=== PATIENT | female | born 1970 | race Caucasian/White ===

== ENCOUNTER 2022-10-29 07:45 | Outpatient (OUT) | payer BC, SELFPAY ==
[2022-10-29 08:51] LABS: White Blood Count 5.8 10^3/uL (4.0-11.0)
[2022-10-29 08:52] LABS: Basophils Percent Auto 0.7 % (0.2-2.0); Eosinophils Absolute Auto 0.3 10^3/uL (0.0-0.7); Eosinophils Percent Auto 4.7 % (0.9-7.0); Hematocrit 41.9 % (36.0-48.0); Hemoglobin 13.9 g/dL (12.0-16.0); Immature Granulocytes Abs Auto 0.01 10^3/uL (0.00-0.03); Immature Granulocytes Pct Auto 0.2 % (0.0-0.5); Lymphocytes Absolute Auto 1.7 10^3/uL (1.2-3.8); Lymphocytes Percent Auto 28.8 % (20.5-60.0); Mean Corpuscular HGB Conc 33.2 g/dL (29.9-35.2); Mean Corpuscular Hemoglobin 29.7 pg (26.7-34.0); Mean Corpuscular Volume 89.5 fL (81.0-99.0); Mean Platelet Volume 9.3 fL (9.5-13.5); Monocytes Absolute Auto 0.5 10^3/uL (0.3-0.8); Monocytes Percent Auto 8.8 % (1.7-12.0); Neutrophils Absolute Auto 3.3 10^3/uL (1.4-6.5); Neutrophils Percent Auto 56.8 % (43.0-75.0); Platelet Count 277 10^3/uL (150-450); Red Blood Count 4.68 10^6/uL (4.20-5.40); Red Cell Distribution Width 13.2 % (11.0-15.0)
[2022-10-29 09:01] LABS: Estimated Average Glucose 100 mg/dL; Glycohemoglobin A1C 5.1 % (4.5-6.2)
[2022-10-29 09:13] LABS: Alanine Aminotransferase 17 U/L (14-59); Albumin Globulin Ratio 0.9; Albumin Level 3.8 g/dL (3.4-5.0); Alkaline Phosphatase 127 U/L (46-116); Anion Gap 10.1; Aspartate Amino Transferase 13 U/L (15-37); BUN Creatinine Ratio 17.3; Bilirubin Total 0.6 mg/dL (0.2-1.0); Calcium 9.4 mg/dL (8.5-10.1); Carbon Dioxide 30.8 mmol/L (21.0-32.0); Chloride 101 mmol/L (98-107); Chol HDL Ratio 4.7; Cholesterol 257 mg/dL (<=200); Estimated GFR (African America >60 (>=60); Estimated GFR (Non-African Ame >60 (>=60); Globulin 4.1 g/dL; Glucose 90 mg/dL (74-106); HDL Cholesterol 55 mg/dL (40-60); Potassium 3.9 mmol/L (3.5-5.1); Sodium 138 mmol/L (136-145); Thyroid Stimulating Hormone 3.281 uIU/mL (0.358-3.740); Total Protein 7.9 g/dL (6.4-8.2); Triglycerides 90 mg/dL (<=150)
== END 2022-10-29 07:46 | disposition home or self-care (01) ==
LOC: LAB 07:45
PROVIDERS: PCP Internal Medicine; Visit Provider Internal Medicine
DX: Z00.00 Encounter for general adult medical examination without abnormal findings (principal)
CPT/HCPCS: 36415; 80053; 80061; 83036; 84443; 85025

== ENCOUNTER 2023-09-22 12:40 | Outpatient (OUT) | payer BC, SELFPAY ==
[2023-09-22 12:57] LABS: Bilirubin Urine NEGATIVE (NEGATIVE); Blood Urine MODERATE (NEGATIVE); Clarity Urine SL CLOUDY (CLEAR); Color Urine LT. YELLOW (YELLOW); Glucose Urine UA NEGATIVE (NEGATIVE); Ketones Urine NEGATIVE (NEGATIVE); Leukocyte Esterase Urine LARGE (NEGATIVE); Nitrite Urine NEGATIVE (NEGATIVE); Protein Urine NEGATIVE (NEG/TRACE); Specific Gravity Urine <=1.005 (1.005-1.025); Urobilinogen Urine 0.2 EU/dL (0.2-1.0)
[2023-09-22 13:05] LABS: Bacteria Urine MODERATE #/HPF (NONE SEEN); Cast Seen? NONE SEEN #/LPF (NONE SEEN); Crystals Seen? None Seen #/HPF (None Seen); Mucus Urine NONE SEEN (NONE SEEN); Squamous Epithelial Cell Urine RARE #/LPF (NONE/RARE); WBC Urine 50-75 #/HPF (NONE SEEN)
== END 2023-09-22 12:41 | disposition home or self-care (01) ==
LOC: LAB 12:41
PROVIDERS: PCP Internal Medicine; Visit Provider Internal Medicine
DX: R30.0 Dysuria (principal)
CPT/HCPCS: 81001; 87086; 87150; 87186

== ENCOUNTER 2023-11-11 12:56 | Outpatient (OUT) | payer BC, SELFPAY ==
--- NOTE | 2023-11-11 | MM_ITS ---
Patient Name: ALFONSO CARDONA MR#: [id number] : 1970 Exam Date: 11/11/2023 Ordering Doctor: DR Calin Kirkland D.O. RADIOLOGY REPORT PROCEDURE: MM TOMOSYNTHESIS SCREENING BI COMPARISON: MG MAMM SCREEN 3D KOURTNEY CAD, 01/14/2021. MG MAMM SCREEN 3D KOURTNEY CAD, 05/20/2022. INDICATIONS: Screening for malignant neoplasm of breast Calculator Name NCI Breast Cancer Risk Assessment Tool 5 Year Breast Cancer Risk 2.40% Lifetime Breast Cancer Risk 15.90% Personal Breast Cancer No Personal Ovarian Cancer No Treatments None Family Cancers Mother with breast cancer at age 81. LOCATION: The [facility] BREAST COMPOSITION: The breasts are heterogeneously dense,which may obscure small masses. FINDINGS: DIAGNOSTIC CATEGORY 1--NEGATIVE. NO CHANGE FROM COMPARISON ASSESSMENT. Scattered benign-appearing lymph nodes are present. RIGHT BREAST: No significant suspicious finding. LEFT BREAST: No significant suspicious finding. RECOMMENDATIONS: ROUTINE MAMMOGRAM AND CLINICAL EVALUATION IN 12 MONTHS. PLEASE NOTE: A NORMAL MAMMOGRAM DOES NOT EXCLUDE THE POSSIBILITY OF BREAST CANCER. A CLINICALLY SUSPICIOUS PALPABLE LUMP SHOULD BE BIOPSIED. Dictated by: Rusty Amaya MD on 11/11/2023 at 14:45 Approved by: Rusty Amaya MD on 11/11/2023 at 14:47
--- OUTSIDE RECORDS SUMMARY | 2023-11-11 13:05 | XMS_ITS | CCD ---
Author Organization [facility] Care Team Providers Care Electrical Technician Instructor Name Role Phone FOREIGN, DR MCINTYRE Admitting Unavailable BALL, DR MCINTYRE Attending Unavailable BALL, DR MCINTYRE Primary Care Unavailable BALL, DR MCINTYRE Consulting Unavailable AMELIA, DR GIRISH Frias Consulting Unavailable HIGHLANDER, LADONNA Clements Admitting Unavailable HIGHLANDER, LADONNA Clements Attending Unavailable BALL, DR MCINTYRE Primary Care Unavailable HIGHLCARINE, LADONNA Clements Admitting Unavailable HIGHLANDER, LADONNA Clements Attending Unavailable BALL, DR MCINTYRE Primary Care Unavailable BALL, DR MCINTYRE Admitting Unavailable BALL, DR MCINTYRE Attending Unavailable BALL, DR MCINTYRE Primary Care Unavailable BALL, DR MCINTYRE Admitting Unavailable BALL, DR MCINTYRE Attending Unavailable BALL, DR MCINTYRE Primary Care Unavailable BALL, DR MCINTYRE Consulting Unavailable AMELIA, DR GIRISH Frias Consulting Unavailable PALLAVI, ANGEL Admitting Unavailable PALLAVI, ANGEL Attending Unavailable BALL, DR MCINTYRE Primary Care Unavailable AMELIA, DR GIRISH Frias Consulting Unavailable PALLAVI, ANGEL Consulting Unavailable BALL, DR MCINTYRE Primary Care Unavailable HIGHLANDER, LADONNA Clements Admitting Unavailable HIGHLANDER, LADONNA Clemetns Attending Unavailable WEST, DR TOD Gleason Consulting Unavailable HIGHLCARINE, LADONNA Clements Consulting Unavailable Ball, Calin Unavailable Allergies Allergy Classification Reported Allergen(s) Allergy Type Date of Onset Reaction(s) Facility (3 sources) Penicillin Drug Allergy 01-23-2017 Unknown [facility] Repository Medications Current Medications Medication Drug Class(es) Dates Sig (Normalized) Sig (Original) amLODIPine 5 mg oral tablet (1 source) Dihydropyridine Calcium Channel Eyad take 1 tablet by mouth at bedtime amLODIPine Besylate 5 MG TAKE 1 (ONE) TABLET BY MOUTH AT BEDTIME Active Cholecalciferol (1 source) Vitamin D take 1 tablet by mouth once daily Cholecalciferol 75 MCG (3000 UT) 1 tablet Orally Once a day Active losartan potassium 25 mg oral tablet (1 source) Angiotensin 2 Receptor Eyad take 1 tablet by mouth every twenty-four hours Losartan Potassium 25 MG 1 tablet Orally Once a day for 90 days Active Problems Active Problems Problem Classification Problem Date Documented Da te Episodic/Chronic Essential hypertension (3 sources) Hypertensive disorder; Translations: [Essential (primary) hypertension] Chronic Other nervous system disorders (1 source) Arachnoid cyst; Translations: [Cerebral cysts] Chronic Other screening for suspected conditions (not mental disorders or infectious disease) (6 sources) Encounter for screening mammogram for malignant neoplasm of breast; Translations: [Encounter for screening for malignant neoplasm of colon] Onset: 05-20-2022 Episodic Residual codes; unclassified (1 source) Family history of malignant neoplasm of breast; Translations: [FAMILY HX MALIG NEOPLASM OF BREAST] Onset: 05-23-2022 Episodic Past or Other Problems Problem Classification Problem Date Documented Da te Episodic/Chronic Fracture of lower limb (4 sources) Other physeal fracture of right metatarsal, subsequent encounter for fracture with routine healing; Translations: [OTH PHYSEAL FX RT MT SUB FX RTN HL] Onset: 07-29-2021 Episodic Other connective tissue disease (4 sources) Pain in right foot; Translations: [PAIN IN RIGHT FOOT] Onset: 07-14-2021 Episodic Other non-traumatic joint disorders (4 sources) Pain in right ankle and joints of right foot; Translations: [PAIN IN RIGHT ANKLE] Onset: 07-01-2021 Episodic Results Test Name Value Interpretation Reference Range Facil ity MG MAMM SCREEN 3D KOURTNEY CADon 05-20-2022 MG MAMM SCREEN 3D KOURTNEY CAD Patient: ALFONSO CARDONA Exam Date: 05/20/2022 : 1970 Gender:F Ordering : DR CALIN CARRASQUILLO D.O. Admission #: [id number] Family : Order #: [id number] CLICK HERE TO VIEW EXAM RADIOLOGY REPORT PROCEDURE: MAMMOGRAM SCREENING 3D BILATERAL CAD COMPARISON: MG MAMM SCREEN KOURTNEY W CAD, 01/31/2019. MG MAMM SCREEN KOURTNEY W CAD, 02/13/2018. DIGITIZED_MAMMO, 01/17/2009. MG MAMM SCREEN 3D KOURTNEY CAD, 01/14/2021. INDICATIONS: Screening mammography Calculator Name NCI Breast Cancer Risk Assessment Tool 5 Year Breast Cancer Risk 2.20% Lifetime Breast Cancer Risk 16.50% Personal Breast Cancer No Personal Ovarian Cancer No Treatments None Family Cancers Mother with breast cancer at age 81. LOCATION: [facility] BREAST COMPOSITION: Heterogeneously dense,which may obscure small masses. FINDINGS: DIAGNOSTIC CATEGORY 2--BENIGN FINDING: RIGHT BREAST: No significant suspicious finding. Stable, chronic small lymph node within lower-inner quadrant. No significant change has occurred. LEFT BREAST: No significant suspicious finding. No significant change has occurred. RECOMMENDATIONS: ROUTINE MAMMOGRAM AND CLINICAL EVALUATION IN 12 MONTHS. PLEASE NOTE: A NORMAL MAMMOGRAM DOES NOT EXCLUDE THE POSSIBILITY OF BREAST CANCER. A CLINICALLY SUSPICIOUS PALPABLE LUMP SHOULD BE BIOPSIED. Dictated by: Girish Mcqueen M.D. on 05/21/2022 at 07:11 Approved by: Girish Mcqueen M.D. on 05/21/2022 at 07:17 Normal [facility] Vital Signs Date Time Vital Sign Value Performing Clinician Facility 11-05-2022 14:00-0400 Body height 170.18 cm Calin Carrasquillo Other [facility] Other 11-05-2022 14:00-0400 Body mass index (BMI) [Ratio] 35.27 kg/m2 Calin Carrasquillo Other [facility] Other 11-05-2022 14:00-0400 Body weight 102.15 kg Calin Carrasquillo Other [facility] Other 11-05-2022 14:00-0400 Diastolic blood pressure 83 mm[Hg] Calin [facility] Other [facility] Other 11-05-2022 14:00-0400 Respiratory rate 12 /min Calin Carrasquillo Other [facility] Other 11-05-2022 14:00-0400 Systolic blood pressure 121 mm[Hg] Calin [employer] Other [facility] Other Encounters Encounter Date Encounter Type Care Provider Facility Start: 11-05-2022 End: 11-05-2022 ambulatory Calin Carrasquillo Other [facility] Other Start: 11-05-2022 Encounter for genera l adult medical examination without abnormal findings Calin Carrasquillo [facility] Start: 11-05-2022 Periodic preventive med est patient 40-64yrs Calin Carrasquillo [facility] Start: 05-20-2022 End: 05-21-[address] CALIN CARRASQUILLO Facility:[facility] Start: 01-05-[address] CALIN CARRASQUILLO Facili ty:[facility] Start: 07-29-2021 End: 07-30-[address] CALIN CARRASQUILLO Facility:[facility] Start: 07-14-2021 End: 07-15-2021 ambulatory ANGEL OLIVO Facility:[facility] Start: 07-06-2021 ambulatory LADONNA GALO Faci lity:[facility]1 Start: 07-03-2021 ambulatory LADONNA GALO Faci lity:[facility] Start: 07-01-2021 End: 07-02-[address] CALIN CARRASQUILLO Facility:[facility] Payers Date Payer Category Payer Unknown [id number] 2019 Unknown [id number] 1970 Unknown [id number] 2.16.84 [id number] 1970 Unknown [id number] 2.16.84 [id number] 1970 Unknown [id number] 2.16.84 [id number] 1970 Unknown [id number] 2.16.84 [id number] 1970 Unknown [id number] 2.16.84 [id number] 1970 Unknown [id number] 2.16.84 [id number] 1970 Unknown [id number] 2.16.84 [id number] 1961 Self-pay [id number] Social History Date Type Detail Facility Sex Assigned At [facility] Other Evaluation note 11-05-2022 Note Date & Type Note Facility 11-05-2022 Evaluation note Encounter Date Diagnosis Assessment Notes Oct, Wellness examination (ICD-10 - Z00.00) Healthy diet and exercise. Reviewed age-appropriate preventive testing recommended. Oct, Primary hypertension (ICD-10 - I10) This patient is instructed to consume a healthy, low-fat, low-salt diet. They are also encouraged to continue exercise to achieve/maintai n a normal BMI. Oct, Screening mammogram for breast cancer (ICD-10 - Z12.31) Completed Instructed patient on monthly SBE and yearly mammograms. Oct, Screening for colon cancer (ICD-10 - Z12.11) Asymptomatic, low risk patient. Denies change in weight, appetite or bowel habits. Denies heartburn, dysphagia, melena or hematochezia [facility] Other Clinical Note 07-29-2021 Note Date & Type Note Facility 07-29-2021 Note PROCEDURE: XR FOOT R T MIN 3 VIEWS COMPARISON: 07/14/2021 HISTORY: Pain in right foot FINDINGS: BONES:Stable transverse intra-articular fracture base of the fifth metatarsal. No change in angulation or distraction. Slight interval bone formation. Cortical thinning and mild permeative pattern suggests mild osteopenia. Flattening of the plantar arch with plantar angulation of the navicular in relation to the distal tarsals, stable SOFT TISSUES:Negative. No visible soft tissue swelling. EFFUSION:None visible. OTHER: Negative. IMPRESSION: Stable healing intra-articular transverse fracture base of the fifth metatarsal Electronically authenticated by: TOD UP Date: 2021-07-29 15:07 [facility] Clinical Note 07-14-2021 Note Date & Type Note Facility 07-14-2021 Note PROCEDURE: XR FOOT R T MIN 3 VIEWS HISTORY: Pain , fifth metatarsal fracture COMPARISON: XR foot right 07/01/2021 FINDINGS: BONES:Callus with fracture base of fifth metatarsal with widening of the fracture line likely due to bone resorption as part of early healing process. Questionable increasing band of lucency within lateral malleolus seen only on the lateral projection. SOFT TISSUES:No visible soft tissue swelling. EFFUSION:None visible. OTHER: Negative. IMPRESSION: 1. Stable alignment and suspected early changes of bone healing at base of fifth metatarsal fracture. 2. Questionable developing lucency within the lateral malleolus which may represent an occult fracture. Correlate for pain over lateral malleolus, and perform follow-up ankle radiographs if indicated. Electronically authenticated by: GIRISH MCQUEEN Date: 2021-07-14 10:59 [facility] Clinical Note 07-01-2021 Note Date & Type Note Facility 07-01-2021 Note PROCEDURE: XR FOOT R T MIN 3 VIEWS, XR ANKLE RT MIN 3 VIEWS HISTORY: Pain in right foot ; lateral foot and ankle pain and swelling COMPARISON: None. FINDINGS: BONES:Fracture line extending through the base of the fifth metatarsal without displacement or appreciable callus formation. Unremarkable ankle joint. SOFT TISSUES:Lateral soft tissue swelling. EFFUSION:None visible. OTHER: Negative. IMPRESSION: 1. Nondisplaced fracture at base of fifth metatarsal suspected to be acute. Electronically authenticated by: GIRISH MCQUEEN Date: 2021-07-01 15:03 [facility] Clinical Note 07-01-2021 Note Date & Type Note Facility 07-01-2021 Note PROCEDURE: XR FOOT R T MIN 3 VIEWS, XR ANKLE RT MIN 3 VIEWS HISTORY: Pain in right foot ; lateral foot and ankle pain and swelling COMPARISON: None. FINDINGS: BONES:Fracture line extending through the base of the fifth metatarsal without displacement or appreciable callus formation. Unremarkable ankle joint. SOFT TISSUES:Lateral soft tissue swelling. EFFUSION:None visible. OTHER: Negative. IMPRESSION: 1. Nondisplaced fracture at base of fifth metatarsal suspected to be acute. Electronically authenticated by: GIRISH MCQUEEN Date: 2021-07-01 15:03 [facility] History general Narrative - Reported Note Date & Type Note Facility History general Narrative - Reported Type Medical History Hypertension Medical History Arachnoid cyst Surgical History 2009 Hospitalization History see surgical history [facility] Other Summary Purpose Family History No Family History Records Found Advance Directives No Advanced Directives Records Found Additional Source Comments INFORMATION SOURCE (unrecogn ized section and content) DATE CREATED AUTHOR 05/23/2022 [facility] REASON FOR VISIT (unrecogniz ed section and content) wellness FOR RECORDS PERTAINING TO PATIENTS WHO ARE OR HAVE BEEN ENROLLED IN A CHEMICAL DEPENDENCY/SUBSTANCEABUSE PROGRAM, SOME INFORMATION MAY BE OMITTED. This clinical summary was aggregated from multiple sources. Caution should be exercised in using it in the provision of clinical care. This summary normalizes information from multiple sources, and as a consequence, information in this document may materially change the coding, format and clinical context of patient data. In addition, data may be omitted in some cases. CLINICAL DECISIONS SHOULD BE BASED ON THE PRIMARY CLINICAL RECORDS. [employer]. provides no warranty or guarantee of the accuracy or completeness of information in this document.
== END 2023-11-11 12:57 | disposition home or self-care (01) ==
LOC: RAD 12:56
PROVIDERS: PCP Internal Medicine; Visit Provider Internal Medicine
DX: Z12.31 Encounter for screening mammogram for malignant neoplasm of breast (principal); Z80.3 Family history of malignant neoplasm of breast
CPT/HCPCS: 77063; 77067

== ENCOUNTER 2024-07-04 10:38 | Outpatient (OUT) | payer BC, SELFPAY ==
[2024-07-04 10:47] LABS: Basophils Percent Auto 0.6 % (0.2-2.0); Eosinophils Absolute Auto 0.3 10^3/uL (0.0-0.7); Eosinophils Percent Auto 4.2 % (0.9-7.0); Hematocrit 38.9 % (36.0-48.0); Hemoglobin 13.3 g/dL (12.0-16.0); Immature Granulocytes Abs Auto 0.01 10^3/uL (0.00-0.03); Immature Granulocytes Pct Auto 0.2 % (0.0-0.5); Lymphocytes Absolute Auto 1.6 10^3/uL (1.2-3.8); Lymphocytes Percent Auto 24.8 % (20.5-60.0); Mean Corpuscular HGB Conc 34.2 g/dL (29.9-35.2); Mean Corpuscular Hemoglobin 30.6 pg (26.7-34.0); Mean Corpuscular Volume 89.6 fL (81.0-99.0); Mean Platelet Volume 9.3 fL (9.5-13.5); Monocytes Absolute Auto 0.4 10^3/uL (0.3-0.8); Monocytes Percent Auto 6.9 % (1.7-12.0); Neutrophils Percent Auto 63.3 % (43.0-75.0); Platelet Count 234 10^3/uL (150-450); Red Blood Count 4.34 10^6/uL (4.20-5.40); Red Cell Distribution Width 13.2 % (11.0-15.0); White Blood Count 6.2 10^3/uL (4.0-11.0)
[2024-07-04 11:28] LABS: Estimated Average Glucose 114 mg/dL; Glycohemoglobin A1C 5.6 % (4.5-6.2)
[2024-07-04 11:41] LABS: Alanine Aminotransferase 18 U/L (14-59); Albumin Level 3.7 g/dL (3.4-5.0); Alkaline Phosphatase 109 U/L (46-116); Anion Gap 11.8; Aspartate Amino Transferase 14 U/L (15-37); BUN Creatinine Ratio 13.1; Bilirubin Total 0.6 mg/dL (0.2-1.0); Calcium 9.3 mg/dL (8.5-10.1); Chloride 100 mmol/L (98-107); Chol HDL Ratio 4.1; Cholesterol 219 mg/dL (<=200); Estimated GFR (African America >60 (>=60 mL/min/1.73m^2); Estimated GFR (Non-African Ame >60 (>=60 mL/min/1.73m^2); Globulin 3.8 g/dL; Glucose 91 mg/dL (74-106); HDL Cholesterol 54 mg/dL (40-60); Potassium 3.8 mmol/L (3.5-5.1); Sodium 137 mmol/L (136-145); Thyroid Stimulating Hormone 2.217 uIU/mL (0.358-3.740); Total Protein 7.5 g/dL (6.4-8.2); Triglycerides 64 mg/dL (<=150); VLDL CHOLESTEROL 12.8 mg/dL
== END 2024-07-04 10:39 | disposition home or self-care (01) ==
LOC: LAB 10:38
PROVIDERS: PCP Internal Medicine; Visit Provider Internal Medicine
DX: Z00.00 Encounter for general adult medical examination without abnormal findings (principal)
CPT/HCPCS: 36415; 80053; 80061; 83036; 84443; 85025

== ENCOUNTER 2024-11-13 10:33 | Outpatient (OUT) | payer BC, SELFPAY ==
--- OUTSIDE RECORDS SUMMARY | 2024-11-13 06:01 | XMS_ITS | CCD ---
Author Organization [facility] Care Team Providers Care Assistant Coach Name Role Phone FOREIGN, DR MCINTYRE Admitting [...] Admitting Unavailable HIGHLANDER, LADONNA Clements Attending Unavailable WEST, DR TOD Gleason Consulting Unavailable HIGHLCARINE, LADONNA Clements Consulting Unavailable Ball, Calin Unavailable Allergies Allergy Classification Reported Allergen(s) Allergy Type Date of Onset Reaction(s) Facility (3 sources) Penicillin Drug Allergy 01-23-2017 Unknown [facility] Repository Medications Current Medications Medication Drug [...] : DR CALIN CARRASQUILLO D.O. Admission #: [id number] Family : Order #: [id number] CLICK HERE TO VIEW EXAM RADIOLOGY REPORT [...] breast cancer at age 79. LOCATION: [facility] BREAST COMPOSITION: Heterogeneously dense,which may obscure [...] Mcqueen M.D. on 05/21/2022 at 07:17 Normal [facility] Vital Signs Date Time Vital Sign Value Performing Clinician Facility 11-05-2022 14:00-0400 Body height 170.18 cm Calin Carrasquillo Other [facility] Other 11-05-2022 14:00-0400 Body mass index (BMI) [Ratio] 35.27 kg/m2 Calin Carrasquillo Other [facility] Other 11-05-2022 14:00-0400 Body weight 102.15 kg Calin Carrasquillo Other [facility] Other 11-05-2022 14:00-0400 Diastolic blood pressure 83 mm[Hg] Calin Orbiter Other [facility] Other 11-05-2022 14:00-0400 Respiratory rate 12 /min Calin Carrasquillo Other [facility] Other 11-05-2022 14:00-0400 Systolic blood pressure 121 mm[Hg] Calin Orbiter Other [facility] Other Encounters Encounter Date Encounter Type Care Provider Facility Start: 11-05-2022 End: 11-05-2022 ambulatory Calin Carrasquillo Other [facility] Other Start: 11-05-2022 Encounter for genera l adult medical examination without abnormal findings Calin Carrasquillo [facility] Start: 11-05-2022 Periodic preventive med est patient 40-64yrs Calin Carrasquillo [facility] Start: 05-20-2022 End: 05-21-2022 ambulatory [...] Facility:[facility]1 Payers Date Payer Category Payer Unknown [id number] 2019 Unknown [id number] 1970 Unknown [id number] 2.16.84 [id number] 1970 Unknown [id number] 2.16.84 [id number] 1970 Unknown [id number] 2.16.84 [id number] 1970 Unknown [id number] 2.16.84 [id number] 1968 Unknown [id number] 2.16.84 [id number] 1970 Unknown [id number] 2.16.84 [id number] 1970 Unknown [id number] 2.16.84 [id number] 1961 Self-pay [id number] Social History Date Type Detail Facility Sex Assigned At [facility] Other Evaluation note 11-05-2022 Note Date & [...] habits. Denies heartburn, dysphagia, melena or hematochezia [facility] Other Clinical Note 07-29-2021 Note Date & [...] authenticated by: TOD UP Date: 2021-07-29 15:07 [facility] Clinical Note 07-14-2021 Note Date & Type [...] by: GIRISH MCQUEEN Date: 2021-07-14 10:59 [facility] Clinical Note 07-01-2021 Note Date & [...] by: GIRISH MCQUEEN Date: 2021-07-01 15:03 [facility] Clinical Note 07-01-2021 Note Date & [...] by: GIRISH MCQUEEN Date: 2021-07-01 15:03 [facility] History general Narrative - Reported Note Date & Type Note Facility History general Narrative - Reported Type Medical History Hypertension Medical History Arachnoid cyst Surgical History 2009 Hospitalization History see surgical history [facility] Other Summary Purpose Family History No Family History Records Found Advance Directives No Advanced Directives Records Found Additional Source Comments INFORMATION SOURCE (unrecogn ized section and content) DATE CREATED AUTHOR 05/23/2022 [facility] REASON FOR VISIT (unrecogniz ed section [...] BE BASED ON THE PRIMARY CLINICAL RECORDS. [employer] [facility]. provides no warranty or guarantee of the accuracy or completeness of information in this document.
--- NOTE | 2024-11-13 10:36 | MM_ITS ---
Patient Name: ALFONSO CARDONA MR#: [id number] : 1970 Exam Date: 11/13/2024 Ordering Doctor: DR FRANCISCO JAVIER CARRASQUILLO D.O. RADIOLOGY REPORT PROCEDURE: MM TOMOSYNTHESIS SCREENING BI COMPARISON: MM TOMOSYNTHESIS SCREENING BI, 11/11/2023. MG MAMM SCREEN 3D KOURTNEY CAD, 05/20/2022. MG MAMM SCREEN 3D KOURTNEY CAD, 01/14/2021. MG MAMM KOURTNEY SCRN W CAD DIG, 09/25/2012. INDICATIONS: Screening Calculator Name NCI Breast Cancer Risk Assessment Tool 5 Year Breast Cancer Risk 2.50% Lifetime Breast Cancer Risk 15.60% Personal Breast Cancer No Personal Ovarian Cancer No Treatments None Family Cancers Mother with breast cancer at age 81. LOCATION: The [facility] BREAST COMPOSITION: There are scattered areas of fibroglandular density. FINDINGS: RIGHT BREAST: No significant suspicious finding. LEFT BREAST: No significant suspicious finding. DIAGNOSTIC CATEGORY 1--NEGATIVE. RECOMMENDATIONS: ROUTINE MAMMOGRAM AND CLINICAL EVALUATION IN 12 MONTHS. Dictated by: Trev Barkley MD on 11/13/2024 at 12:33 Approved by: Trev Barkley MD on 11/13/2024 at 12:34
--- OUTSIDE RECORDS SUMMARY | 2024-11-13 10:38 | XMS_ITS | CCD ---
Author Organization [facility] Care Team Providers Care Green Tire Inspector Name Role Phone FOREIGN, DR MCINTYRE Admitting [...] sources) Penicillin Drug Allergy 01-23-2017 Unknown [facility] Repository Medications Current Medications Medication Drug [...] : DR CALIN CARRASQUILLO D.O. Admission #: [id number] Family : Order #: [id number] CLICK HERE TO VIEW EXAM RADIOLOGY REPORT [...] breast cancer at age 79. LOCATION: [facility] BREAST COMPOSITION: Heterogeneously dense,which may obscure [...] Mcqueen M.D. on 05/21/2022 at 07:17 Normal [facility] Vital Signs Date Time Vital Sign Value Performing Clinician Facility 11-05-2022 14:00-0400 Body height 170.18 cm Calin Carrasquillo Other [facility] Other 11-05-2022 14:00-0400 Body mass index (BMI) [Ratio] 35.27 kg/m2 Calin Carrasquillo Other [facility] Other 11-05-2022 14:00-0400 Body weight 102.15 kg Calin Carrasquillo Other [facility] Other 11-05-2022 14:00-0400 Diastolic blood pressure 83 mm[Hg] Calin [employer] Other [facility] Other 11-05-2022 14:00-0400 Respiratory rate 12 /min Calin Carrasquillo Other [facility] Other 11-05-2022 14:00-0400 Systolic blood pressure 121 mm[Hg] Calin [employer] Other [facility] Other Encounters Encounter Date Encounter Type Care Provider Facility Start: 11-05-2022 End: 11-05-2022 ambulatory Calin Carrasquillo Other [facility] Other Start: 11-05-2022 Encounter for genera l adult medical examination without abnormal findings Calin Carrasquillo [facility] Start: 11-05-2022 Periodic preventive med est patient 40-64yrs Calin Carrasquillo [facility] Start: 05-20-2022 End: 05-21-2022 ambulatory [...] Facility:[facility]1 Payers Date Payer Category Payer Unknown [id number] 2019 Unknown [id number] 1970 Unknown [id number] 2.16.84 [id number] 1970 Unknown [id number] 2.16.84 [id number] 1970 Unknown [id number] 2.16.84 [id number] 1968 Unknown [id number] 2.16.84 [id number] 1968 Unknown [id number] 2.16.84 [id number] 1968 Unknown [id number] 2.16.84 [id number] 1968 Unknown [id number] 2.16.84 [id number] 1961 Self-pay [id number] Social History Date Type Detail Facility Sex Assigned At [facility] Other Evaluation note 11-05-2022 Note Date & [...] habits. Denies heartburn, dysphagia, melena or hematochezia [facility] Other Clinical Note 07-29-2021 Note Date & [...] authenticated by: TOD UP Date: 2021-07-29 15:07 [facility] Clinical Note 07-14-2021 Note Date & [...] by: GIRISH MCQUEEN Date: 2021-07-14 10:59 [facility] Clinical Note 07-01-2021 Note Date & [...] by: GIRISH MCQUEEN Date: 2021-07-01 15:03 [facility] Clinical Note 07-01-2021 Note Date & [...] by: GIRISH MCQUEEN Date: 2021-07-01 15:03 [facility] History general Narrative - Reported Note Date & Type Note Facility History general Narrative - Reported Type Medical History Hypertension Medical History Arachnoid cyst Surgical History 2009 Hospitalization History see surgical history [facility] Other Summary Purpose Family History No Family History Records Found Advance Directives No Advanced Directives Records Found Additional Source Comments INFORMATION SOURCE (unrecogn ized section and content) DATE CREATED AUTHOR 05/23/2022 [facility] REASON FOR VISIT (unrecogniz ed section [...] BE BASED ON THE PRIMARY CLINICAL RECORDS. [employer] [facility]. provides no warranty or guarantee of the accuracy or completeness of information in this document.
== END 2024-11-13 10:34 | disposition home or self-care (01) ==
LOC: MAMMO 10:33
PROVIDERS: PCP Internal Medicine; Visit Provider Internal Medicine
DX: Z12.31 Encounter for screening mammogram for malignant neoplasm of breast (principal); Z80.3 Family history of malignant neoplasm of breast
CPT/HCPCS: 77063; 77067